=== PATIENT | female | born 1985 | race Caucasian/White ===

== ENCOUNTER 2020-07-12 06:01 | Inpatient (IN) ==
[2020-07-12] MEDS ORDERED: BUTORPHANOL TARTRATE 2 MG/ML VIAL IV PRN ×2 (06:12)
[2020-07-12] MEDS ORDERED: ONDANSETRON 4 MG TAB.RAPDIS PO PRN (06:12)
[2020-07-12] MEDS ORDERED: LIDOCAINE HCL 50 ML VIAL PERI PRN (06:12)
--- NOTE | 2020-07-12 06:57 | HP ---
Chief Complaint - Chief Complaint Date of Service: 07/12/20 Time of Service: 06:43 Chief Complaint: Pt presents for medical IOL due to AMA History of Present Illness: 35 year old at 39w 0d who presents for a medical IOL due to AMA. She denies vb, lof or ctx. Fetus is active. Medical History (Last Reviewed 07/12/20 @ 06:51 by Yoselyn Encinas MD) Abnormal Pap smear of cervix Onset Date: ~2011 Surgical History: Surgical History (Last Updated 07/12/20 @ 06:52 by Yoselyn Encinas MD) History of dilation and curettage History of appendectomy Onset Date: ~1995 History of colposcopy Onset Date: ~2011 pathology negative History of wisdom tooth extraction Onset Date: ~2001 Family History: Family History (Last Reviewed 07/12/20 @ 06:52 by Yoselyn Encinas MD) Mother Narcotic addiction Suicide Migraine Father Alive and well Social History: (Last Reviewed 07/12/20 @ 06:52 by Yoselyn Encinas MD) Social History: Marital status: household members: spouse current occupational status: employed current occupation: teacher Highest level of school completed/degree received: Master's degree Service: No Tobacco: Smoking Status: Never smoker Alcohol: alcohol intake: current Alcohol type: wine alcohol intake frequency: a few times a week details: stopped with +UPT Substance Use: substance use type: does not use Dietary Habits: caffeine: Yes caffeine comment: 50mg/daily Type: coffee Pets: pets and animals: dog(s) Review Of Systems (GEN) - Review of Systems Generalized/Overall Review: Present: No Symptoms Reported EENTM: Present: No Symptoms Reported Respiratory: Present: No Symptoms Reported Cardiac: Present: No Symptoms Reported Abdominal: Present: No Symptoms Reported Genitourinary: Present: No Symptoms Reported Musculoskeletal: Present: No Symptoms Reported Neurological: Present: No Symptoms Reported Skin: Present: No Symptoms Reported Endocrine: Present: No Symptoms Reported Allergies/Adverse Reactions: Allergies Allergy/AdvReac Type Severity Reaction Status Date / Time No Known Allergies Allergy Verified 07/10/20 08:45 Home Medications: HOME MEDICATIONS clindamycin phosphate 1 % topical gel, once daily 1 applic TP DAILY 12/05/19 [Last Taken Unknown] prenat.vits,veronica,drr-jydp-rgulq 1 tab PO DAILY 12/05/19 [Last Taken Unknown] breast pump See Rx Instructions .ROUTE .MEDSUPPLY #1 ea 06/26/20 [Last Taken Unknown] Exam - Exam Vital Signs: 37.1 114/78 86 100% 18 Constitutional: Present: Alert, Oriented x3, Cooperative, No distress ENT Exam: Present: hearing grossly normal Eye Exam: bilateral eye: normal inspection Neck: Present: normal inspection Back Exam: Present: normal inspection Breasts: Present: Exam deferred Respiratory: Present: lungs clear, normal breath sounds Cardiovascular/Chest: Present: regular rate, rhythm Abdomen: Present: soft, nontender, nondistended, no rebound tenderness /Rectal: Present: Exam deferred Extremity: Present: non-tender, no calf tenderness Skin Exam: Present: normal color, warm/dry, no cyanosis Neurologic: Present: alert, normal mood/affect, oriented x 3 Appearance: Present: appropriate appearance, appropriate insight, neat, no memory impairment Eye contact: Present: cooperative, good eye contact, normal speech Thoughts: Present: normal thought pattern Assessment/Plan - Narrative Narrative: 35 year old at 39w 0d 1. Medical IOL due to AMA: Pitocin started. The patient declines AROM for augmentation of labor. Described benefits of AROM. Vertex presentation confirmed with bedside presentation due to unstable lie 2. GBS negative FHT cat 1 - Assessment/Plan (1) Vertex presentation of fetus in third trimester Problem: Acute (2) 39 weeks gestation of Problem: Acute (3) Abnormal finding on Pap smear, HPV DNA positive Problem: Acute (4) AMA (advanced maternal age) multigravida 35+ Problem: Acute Qualifiers: Trimester: third trimester Qualified Code(s): O09.523 - Supervision of elderly multigravida, third trimester
[2020-07-12] MEDS: RINGER'S SOLUTION,LACTATED 1,000 ML IV PRN ×3 (07:24→22:50)
[2020-07-12] MEDS: OXYTOCIN/0.9 % SODIUM CHLORIDE 30 UNITS/500 ML BAG IV ONE (07:35)
[2020-07-12] MEDS ORDERED: ACETAMINOPHEN 325 MG TABLET PO PRN (21:49)
[2020-07-13] MEDS: RINGER'S SOLUTION,LACTATED 1,000 ML IV PRN ×2 (06:20→13:37)
[2020-07-13] MEDS: OXYTOCIN/0.9 % SODIUM CHLORIDE 30 UNITS/500 ML BAG IV ONE (09:44)
--- NOTE | 2020-07-13 10:57 | PN ---
Progess Note - Interim Date: 07/13/20 Time: 10:56 Narrative: 07/13/20 10:56 The patient was on pitocin for 24 hours with minimal cervical change Pitocin turned off for one hour to allow the patient to have breakfast. Cervix 2-3/60/-3 AROM for clear fluid NST cat 1 Epidural PRN
[2020-07-13] MEDS: RINGER'S SOLUTION,LACTATED 1,000 ML IV ONE ×2 (15:10→17:20)
[2020-07-13] MEDS ORDERED: BUPIVACAINE HCL/0.9 % NACL/PF 250 ML EP PRN (15:16)
[2020-07-13] MEDS ORDERED: ONDANSETRON HCL/PF 2 MG/ML VIAL IV PRN (15:16)
[2020-07-13] MEDS ORDERED: NALOXONE HCL 1 MG/1 ML SYRG IV PRN (15:16)
[2020-07-13] MEDS ORDERED: BUPIVACAINE HCL/PF 30 ML VIAL EP SCH (15:30)
--- NOTE | 2020-07-13 15:44 | ANES ---
Anesthesia Pre Procedure Eval Vitals/Labs: Last Vital Signs Temp 36.6 C 07/13/20 06:37 Pulse 64 07/13/20 06:37 Resp 18 07/13/20 06:37 BP 123/76 07/13/20 06:37 Pulse Ox 99 07/13/20 06:37 HOME MEDICATIONS breast pump See Rx Instructions .ROUTE .MEDSUPPLY #1 ea 06/26/20 [Last Taken Unknown] Allergies/Adverse Reactions: Allergies Allergy/AdvReac Type Severity Reaction Status Date / Time No Known Allergies Allergy Verified 07/10/20 08:45 - Planned Procedure Planned Procedure: Labor Epidural Medical History (Last Reviewed 07/12/20 @ 07:13 by Ngoc Vaughn RN) Abnormal Pap smear of cervix Onset Date: ~2011 Surgical History (Last Reviewed 07/12/20 @ 07:13 by Ngoc Vaughn RN) History of dilation and curettage History of appendectomy Onset Date: ~1995 History of colposcopy Onset Date: ~2011 pathology negative History of wisdom tooth extraction Onset Date: ~2001 Family History (Last Reviewed 07/12/20 @ 07:13 by Ngoc Vaughn RN) Mother Narcotic addiction Suicide Migraine Father Alive and well - Anesthesia Assessment and Plan ASA Class: PS, II Anesthesia Type Plan: Epidural
--- NOTE | 2020-07-13 16:00 | ANES ---
Anesthesia Procedure Note Procedure Note: ANESTHESIA PROCEDURE NOTE Date of Procedure: 07/13/2020. Time of procedure: 1545. Performed by: Joey Castro CRNA Manager Technology: None. Preprocedure diagnosis: Active labor. Post procedure diagnosis: Same. Procedure: Insertion of labor epidural. Indications: The patient is a 35-year-old female in active labor requesting labor epidural for pain management. Findings: See below. Details of the procedure: The patient was placed in a sitting position. DuraPrep as well as Betadine swabs X3 was applied to the patient's back. Patient was then draped in a sterile fashion. Lidocaine 1% was infiltrated to the skin and subcutaneous tissues at the level of the L3-4 interspace. The epidural space was identified using a 18-gauge Tuohy needle with opas-[id number] technique. Epidural catheter was inserted to a depth of 10 centimeters at skin. Negative test dose was elicited using 3 mL of 1.5% preservative-free lidocaine plus epinephrine 1 200,000. The epidural catheter was then taped and secured in place. A loading dose of 8 mL of 0.25% preservative-free bupivacaine was administered to the epidural catheter after negative aspiration for blood and CSF. EBL: Minimal. Fluids: N/A. Specimen: N/A. Post procedure condition: The patient tolerated the procedure well. No complications were noted. Thank you for this consultation. Joey Castro CRNA
--- NOTE | 2020-07-13 16:01 | ANES ---
Post Anesthesia Assessment - Vital Signs Vitals: Last Vital Signs Temp 36.6 C 07/13/20 06:37 Pulse 64 07/13/20 06:37 Resp 18 07/13/20 06:37 BP 123/76 07/13/20 06:37 Pulse Ox 99 07/13/20 06:37 Airway Patency: Normal - Mental Status Level Of Consciousness: Awake - N/V Assessment Nausea/Vomiting Presence: None Dehydration:: No
[2020-07-13] MEDS ORDERED: MISOPROSTOL 200 MCG TABLET RC STA (17:20)
[2020-07-13] MEDS ORDERED: METHYLERGONOVINE MALEATE 0.2 MG/ML VIAL ONE (17:22)
[2020-07-13] MEDS ORDERED: CARBOPROST TROMETHAMINE 250 MCG/ML AMPUL IM ONE (17:28)
[2020-07-13] MEDS ORDERED: MEPERIDINE HCL/PF 50 MG/ML SYRG IM STA (17:31)
[2020-07-13] MEDS ORDERED: MEPERIDINE HCL/PF 50 MG/ML SYRG ONE (17:33)
--- NOTE | 2020-07-13 17:45 | OR ---
Operative Report - Dictated Report Narrative: Date of delivery: 07/13/2020 Time of delivery: 1713 Gender: female weight: 3502 grams APGARS: 02/12 Procedure: Description of the procedure: The patient is a 35 year old at 39w 1d who presented to L&D for a medical IOL due to AMA. She received pitocin for over 24 hours with minimal cervical change. She consented to AROM at which time she progressed to complete dilation. She delivered a viable female in ANGELLA presentation. The shoulders delivered spontaneously followed by the rest of the . Cord clamping was delayed for 30 seconds due to vigorous . The cord was clamped and cut. Cord blood was collected. The placenta delivered by expression and appeared intact. Uterine atony was noted. The patient received misoprostol, methergine and hemabate. Manual uterine exploration was undertaken due to persistent atony. Clots were evacuated from the uterus. Will give prophylactic Ancef due to manual uterine exploration. EBL: 450 mL There were no lacerations. Complications: none Specimens: cord blood History for Definition: * The number of deliveries resulting in a live the patient experienced prior to current hospitalization * The previous delivery of live twins or any live multiple gestation is considered one live event. *If primagravida or nulliparous is documented select zero for the number of previous live births. Live Events: 2
[2020-07-13] MEDS ORDERED: OXYTOCIN/0.9 % SODIUM CHLORIDE 30 UNITS/500 ML BAG IV ONE (17:46)
[2020-07-13] MEDS ORDERED: HYDROCORTISONE 30 APPL TUBE TP PRN (17:46)
[2020-07-13] MEDS ORDERED: GLYCERIN/WITCH HAZEL LEAF 40 APPL BOX TP PRN (17:46)
[2020-07-13] MEDS ORDERED: BENZOCAINE/MENTHOL 81 SPRAY CAN TP PRN (17:46)
[2020-07-13] MEDS ORDERED: SENNOSIDES 8.6 MG TABLET PO PRN (17:46)
[2020-07-13] MEDS ORDERED: diphenhydrAMINE HCL 25 MG CAPSULE PO PRN (17:46)
[2020-07-13] MEDS ORDERED: HYDROcodone/ACETAMINOPHEN 1 EACH TABLET PO PRN ×2 (17:46)
[2020-07-13] MEDS ORDERED: IBUPROFEN 800 MG TABLET PO PRN (17:46)
[2020-07-13] MEDS ORDERED: BISACODYL 10 MG SUPP.RECT RC PRN (17:46)
[2020-07-13] MEDS ORDERED: METHYLERGONOVINE MALEATE 0.2 MG/ML VIAL IM STA (17:51)
[2020-07-13] MEDS ORDERED: CARBOPROST TROMETHAMINE 250 MCG/ML AMPUL IM STA (17:52)
[2020-07-13] MEDS ORDERED: ceFAZolin SODIUM 1 GM VIAL IV ONE (18:08)
[2020-07-13] MEDS ORDERED: ceFAZolin SODIUM/DEXTROSE,ISO 2 GM/50 ML BAG IV ONE (18:15)
[2020-07-13] MEDS: DOCUSATE SODIUM 100 MG CAPSULE PO SCH (20:04)
--- NOTE | 2020-07-14 06:59 | PN ---
Subjective - Date and Time Seen Date: 07/14/20 Time: 06:57 Subjective Narrative: Patient without complaints. Bleeding is normal Objective Objective Narrative: See vital signs - Review of Systems Generalized/Overall Review: Reports: No Symptoms Reported Misc: All systems neg except as marked - Vitals Vitals: Last Vital Signs Temp 36.8 C 07/13/20 22:33 Pulse 78 07/14/20 01:58 Resp 16 07/14/20 01:58 BP 128/78 07/14/20 01:58 Pulse Ox 98 07/13/20 22:33 - Exam Constitutional: Present: Alert, Oriented x3, Cooperative, No distress ENT Exam: Present: hearing grossly normal Neck: Present: normal inspection Abdomen: Present: soft, nontender, nondistended Extremity: Present: non-tender, no calf tenderness Skin Exam: Present: normal color, warm/dry, no cyanosis Neurologic: Present: alert, normal mood/affect, oriented x 3 Appearance: Present: appropriate appearance, appropriate insight, neat, no memory impairment Eye contact: Present: cooperative, good eye contact, normal speech Thoughts: Present: normal thought pattern Cauti Physician Documentation - Urinary Catheter Management Urethral (Solorzano) Urethral Indwelling: No Date of Insertion: 07/13/20 Time of Insertion: 16:30 Date of Removal: 07/13/20 Time of Removal: 16:55 Assessment/Plan Plan Narrative: PPD 1 s/p Doing well Discharge home today if cleared by Peds - Problems/Diagnosis (1) Vertex presentation of fetus in third trimester Problem: Acute (2) 39 weeks gestation of Problem: Acute (3) Abnormal finding on Pap smear, HPV DNA positive Problem: Acute (4) AMA (advanced maternal age) multigravida 35+ Problem: Acute Qualifiers: Trimester: third trimester Qualified Code(s): O09.523 - Supervision of elderly multigravida, third trimester
--- NOTE | 2020-07-14 07:05 | DS ---
OB Discharge Summary (1) Vertex presentation of fetus in third trimester Status: Acute (2) 39 weeks gestation of Status: Acute (3) Abnormal finding on Pap smear, HPV DNA positive Status: Acute (4) AMA (advanced maternal age) multigravida 35+ Status: Acute Qualifiers: Trimester: third trimester Qualified Code(s): O09.523 - Supervision of elderly multigravida, third trimester Delivery Date: 07/13/20 Delivery Time: 17:13 :: 4 Para:: 2 Gestational weeks:: 39 Gestational days:: 1 Intrapartum Procedures: Spontaneous Vaginal Delivery, Anesthesia - Epidural, Uterine Exploration Procedures: Antibiotics1 /OP Complications: Hemorrhage-Uterine Atony Discharge Diagnosis: Term -Delivered - Discharge Information Date of Discharge: 07/14/20 Hospital Course: The patient presented to labor and delivery for a medical induction of labor due to AMA. She received pitocin for over 24 hours with minimal cervical change. She progressed quickly after AROM. Delivery was uncomplicated but there was a PPH. Discharge Location: Home Disposition: Home self-care Activity on Discharge:: Activity as tolerated, Pelvic Rest Discharge Diet: General/regular food Complete Home Medications List: Complete Home Medication List: breast pump See Rx Instructions .ROUTE .MEDSUPPLY #1 ea 06/26/20 Hydrocortisone [Hydrocortisone 1% Cream] 1 appl TP PRN PRN tube 07/14/20 Ibuprofen [Motrin] 800 mg PO Q6H PRN tab 07/14/20 - Plan Discharge to:: Home Comment:: Routine Discharge Instructions Follow up in office in:: Other - 4 weeks - Information Weight (Grams): 3,502 Sex: Female Score 1 min: 9 Score 5 min: 9 Infant Complications: None
[2020-07-14] MEDS: DOCUSATE SODIUM 100 MG CAPSULE PO SCH (10:21)
[2020-07-14 17:25] VITALS: BP 109/62
== END 2020-07-14 18:25 | disposition home or self-care (01) | DRG 768 ==
LOC: OB 06:01
PROVIDERS: ADMIT Obstetrics & Gynecology; ATTEND Obstetrics & Gynecology